=== PATIENT | male | born 1950 | race African-American/Black ===

== ENCOUNTER → 2021-11-29 | Outpatient (CLI) | payer MEDICARE ==
[~2021-11-29] MED LIST: ASPIRIN E.C. 8181 MG PO; BENTYL 10MG10 MG/CAP PO; NO HOME MEDICATIONS; SIMVASTATIN80 MG PO
== END ==
LOC: ZCOL.LAB 15:53
DX: Z20.822 Contact with and (suspected) exposure to COVID-19 (principal)

== ENCOUNTER → 2022-03-01 | Outpatient (CLI) | payer MEDICARE ==
[~2022-03-01] MED LIST changes: +FLEXERIL 1010 MG/TAB PO; +HCTZ 25MG TAB25 MG PO; +LIPITOR 10MG10 MG PO; +PROTONIX 40MG T40 MG PO; +ULTRAM 50MG TAB50 MG PO
== END ==
LOC: COL.RAD 09:17
DX: R91.8 Other nonspecific abnormal finding of lung field (principal); M16.11 Unilateral primary osteoarthritis, right hip; C41.9 Malignant neoplasm of bone and articular cartilage, unspecified; E27.9 Disorder of adrenal gland, unspecified
CPT/HCPCS: Q9967

== ENCOUNTER 2022-03-04 08:57 | Outpatient (CLI) | payer MEDICARE ==
[~2022-03-04] VITALS: Ht 185.4 cm; Wt 98.5 kg
[2022-03-04] VITALS (13 sets, daily range): BP systolic 96–143; BP diastolic 73–92; PULSE 85–99; TEMP 97.8
--- NOTE | 2022-03-04 09:55 | NUR ---
Pt to CT per ambulation. Monitors applied. O2 on at 2l/nc.
--- NOTE | 2022-03-04 10:10 | NUR ---
Specimens obtained by Dr Chatman from sternal lesion and placed in formalin. Specimen labeled.
--- NOTE | 2022-03-04 10:23 | NUR ---
Specimen obtained by Dr Chatman and placed in formalin from left lung lesion. Specimen labeled.
== END 2022-03-04 13:30 | disposition home or self-care (01) ==
LOC: COL.RAD 08:57
DX: R91.8 Other nonspecific abnormal finding of lung field (principal); M89.9 Disorder of bone, unspecified
CPT/HCPCS: J2250; J3010